=== PATIENT | female | born 1965 | race Caucasian/White ===

== ENCOUNTER 2017-02-24 20:14 | Emergency (ER) | payer MEDICAID ==
[~2017-02-24] VITALS: Ht 167.6 cm; Wt 82.6 kg
--- NOTE | 2017-02-24 20:26 | NUR ---
PATIENT TO ER BED 7.
--- NOTE | 2017-02-24 20:35 | NUR ---
Patient being evaluated by physician at bedside.
[2017-02-24] MEDS ORDERED: NACL 0.9% 1,000 ML IV SCH (20:49)
[2017-02-24] MEDS ORDERED: KETOROLAC 30 MG/ML VIAL IVP ONE (20:50)
[2017-02-24] MEDS ORDERED: ONDANSETRON 4 MG/2 ML VIAL IVP ONE ×2 (20:50→21:10)
[2017-02-24] MEDS ORDERED: METOCLOPRAMIDE 10 MG/2 ML INJ VIAL IVP ONE (21:00)
--- NOTE | 2017-02-24 21:30 | NUR ---
51Y/F PATIENT PRESENTS TO ED WITH C/O ABDOMINAL PAIN X 8 DAYS . PT STATES HAVING PAIN X 8 DAYS WITH FEELING NAUSEA . DENIES DIARRHEA; SKIN IS PINK/WARM/DRY; AAOX4 WITH EVEN AND STEADY GAIT; LUNGS CLEAR BL; HR EVEN AND REGULAR; PT DENIES ANY FEVER, CP, SOB, OR COUGH AT THIS TIME; PATIENT STATES PAIN OF 10/10 AT THIS TIME; VSS; PATIENT POSITIONED FOR COMFORT; HOB ELEVATED; BEDRAILS UP X2; BED DOWN. ER MD MADE AWARE OF PT STATUS.
--- NOTE | 2017-02-24 21:35 | NUR ---
GOT REPORT FROM LAB BS [id number], DR. HERZOG MADE AWARE
[2017-02-24] MEDS ORDERED: INSULIN HUMAN REGULAR 100 UNITS/ML 10 ML VIAL IVP ONE (21:45)
[2017-02-24 22:49] VITALS: BP 136/70
--- NOTE | 2017-02-24 22:50 | NUR ---
Patient discharged with v/s stable. Written and verbal after care instructions given and explained. Patient alert, oriented and verbalized understanding of instructions. Ambulatory with steady gait. All questions addressed prior to discharge. ID band removed. Patient advised to follow up with PMD. Rx of ZOFRAN ODT 4 MG, HUMOLOG 100UNIT/ML SLIDING SCALE, FRONT DESK MANAGER LANCET, NORCO 5/325MG, ACCU CHECK ACTIVE TEST STRIP given. Patient educated on indication of medication including possible reaction and side effects. Opportunity to ask questions provided and answered.
== END 2017-02-24 22:50 | disposition home or self-care (01) ==
LOC: MED 20:14
DX: K85.90 Acute pancreatitis without necrosis or infection, unspecified (principal); E11.65 Type 2 diabetes mellitus with hyperglycemia; Z88.1 Allergy status to other antibiotic agents; Z88.8 Allergy status to other drugs, medicaments and biological substances; Z90.710 Acquired absence of both cervix and uterus
CPT/HCPCS: 36415; 76705; 80053; 81001; 81025; 82009; 82948; 83690; 84703; 85025; 96361; 96374; 96375; 99285; J1815; J1885; J2405; J2765; J7030